=== PATIENT | female | born 1995 | race Caucasian/White ===

== ENCOUNTER 2017-01-30 16:34 | Emergency (ER) | payer BC ==
[~2017-01-30] VITALS: Ht 175.3 cm; Wt 136.3 kg
[2017-01-30 17:31] LABS: HEMATOCRIT 37.9 % (36.0-46.0); MCH 29.3 PG (29.0-34.0); MCHC 34.6 G/DL (30.0-36.0); MCV 84.8 FL (83-99); MEAN PLAT.VOLUME 9.1 uM^3 (9.5-12.4); PLATELET COUNT 270 K/uL (156-360); RBC DIS.WIDTH-CV 12.5 % (11.8-14.6); RBC DIS.WIDTH-SD 38.3 % (39-53); RED BLOOD COUNT 4.47 M/uL (3.80-5.20); WHITE BLOOD COUNT 12.6 K/uL (4.1-10.2)
[2017-01-30 17:39] LABS: CHLORIDE 105 mEq/L (99-109); POTASSIUM 3.9 mEq/L (3.7-5.4); SODIUM 137 mEq/L (136-147)
[2017-01-30 17:41] LABS: GLUCOSE 75 mg/dL (70-99)
[2017-01-30 17:42] LABS: ANION GAP 14 MEQ/L (2-14)
[2017-01-30 17:44] LABS: GFR ESTIMATE (CALCULATED) > 59 mL/min/
[2017-01-30 17:45] LABS: UREA NITROGEN (BUN) 10 mg/dL (9-23)
[2017-01-30 19:04] LABS: ADD MIUA? YES; BILIRUBIN NEGATIVE; BLOOD NEGATIVE; COLOR YELLOW ((YELLOW)); GLUCOSE (STRIP) NEGATIVE; KETONES 80; LEUKOCYTES NEGATIVE; NITRITE NEGATIVE; PROTEIN (STRIP) NEGATIVE; SPECIFIC GRAVITY 1.012 (1.000-1.030); UROBILINOGEN 0.2 MG/DL (0.2-1.0)
[2017-01-30 19:09] LABS: BACTERIA RARE /HPF; EPITHELIAL CELLS 1+ /HPF; MUCUS TRACE /LPF; RED BLOOD CELLS 0-5 /HPF (0-5); WHITE BLOOD CELLS 0-5 /HPF (0-5)
[2017-01-30 19:15] LABS: QUANTITATIVE HCG 127550.1 MIU/ML
[2017-01-30] MEDS ORDERED: ZOFRAN ODT4 MG PO (19:24)
[2017-01-30 19:59] VITALS: BP 137/87
== END 2017-01-30 20:00 | disposition home or self-care (01) ==
LOC: EME 16:34
PROVIDERS: Nurse Practitioner Family
DX: O21.9 Vomiting of pregnancy, unspecified (principal); O26.891 Other specified pregnancy related conditions, first trimester; E86.0 Dehydration; Z3A.10 10 weeks gestation of pregnancy
CPT/HCPCS: 80048; 81003; 84702; 85027; 99281; 99285; J2405; J7030

== ENCOUNTER 2017-05-28 20:37 | Outpatient (CLI) | payer BC, OTHER ==
[~2017-05-28] VITALS: Ht 175.3 cm; Wt 136.2 kg
[~2017-05-28 20:37] MED LIST: ZOFRAN ODT4 MG PO
[2017-05-28 21:13] LABS: ADD MIUA? YES; BILIRUBIN NEGATIVE; BLOOD NEGATIVE; COLOR AMBER ((YELLOW)); GLUCOSE (STRIP) NEGATIVE; KETONES 5; LEUKOCYTES TRACE; NITRITE NEGATIVE; PROTEIN (STRIP) 30; SPECIFIC GRAVITY 1.025 (1.000-1.030)
[2017-05-28 21:29] LABS: HEMATOCRIT 35.3 % (36.0-46.0); MCH 29.6 PG (29.0-34.0); MCHC 34.3 G/DL (30.0-36.0); MCV 86.3 FL (83-99); MEAN PLAT.VOLUME 9.4 uM^3 (9.5-12.4); PLATELET COUNT 290 K/uL (156-360); RBC DIS.WIDTH-CV 12.6 % (11.8-14.6); RBC DIS.WIDTH-SD 39.8 % (39-53); RED BLOOD COUNT 4.09 M/uL (3.80-5.20); WHITE BLOOD COUNT 16.7 K/uL (4.1-10.2)
[2017-05-28 21:33] LABS: BACTERIA 2+ /HPF; CASTS NONE SEEN /LPF; CRYSTALS NONE SEEN; EPITHELIAL CELLS 3+ /HPF; MUCUS 3+ /LPF; RED BLOOD CELLS 0-5 /HPF (0-5); UCUL ADDED? YES
[2017-05-28 21:36] LABS: CHLORIDE 107 mEq/L (99-109); POTASSIUM 3.9 mEq/L (3.7-5.4); SODIUM 137 mEq/L (136-147)
[2017-05-28 21:38] LABS: GLUCOSE 97 mg/dL (70-99)
[2017-05-28 21:39] LABS: ANION GAP 11 MEQ/L (2-14)
[2017-05-28 21:40] LABS: TOTAL BILIRUBIN 0.5 mg/dL (0.0-1.0)
[2017-05-28 21:42] LABS: ALKALINE PHOSPHATASE 96 IU/L (3-129); GFR ESTIMATE (CALCULATED) > 59 mL/min/
[2017-05-28 21:43] LABS: UREA NITROGEN (BUN) 9 mg/dL (9-23)
[2017-05-28 21:45] LABS: LIPASE 76 U/L (1.0-51.0)
[2017-05-28 23:40] LABS: EOSINOPHIL (%) 0.2 % (0-5); IMMATURE GRANULOCYTE (%) 0.4 % (0.0-0.7); IMMATURE GRANULOCYTE COUNT 0.1 K/uL; INSTRUMENT ABS NEUTROPHIL CT 14.1 K/uL; LYMPHOCYTE COUNT 1.4 K/uL (1.0-2.8); MONOCYTE (%) 5.7 % (3-12); MONOCYTE COUNT 0.9 K/uL (0-0.8); NEUTROPHIL (%) 85.3 % (45-76); NEUTROPHIL COUNT 14.1 K/uL (1.8-6.4)
[2017-05-28] MEDS ORDERED: ZANTAC300 MG PO (23:41)
[2017-05-28] MEDS ORDERED: ZOFRAN ODT4 MG PO (23:41)
[2017-05-29 00:40] VITALS: BP 127/60
[2017-05-29 03:54] LABS: UR CREATININE CONCENTRATION 81.5 MG/DL
== END 2017-05-29 04:05 | disposition home or self-care (01) ==
LOC: LDRP-OP 20:37 → EME 20:37 → 2WEST 05-29 00:21
PROVIDERS: Midwife
DX: O26.892 Other specified pregnancy related conditions, second trimester (principal); R10.13 Epigastric pain; O26.612 Liver and biliary tract disorders in pregnancy, second trimester; K80.70 Calculus of gallbladder and bile duct without cholecystitis without obstruction; O99.112 Other diseases of the blood and blood-forming organs and certain disorders involving the immune mechanism complicating pregnancy, second trimester; D72.829 Elevated white blood cell count, unspecified; O99.212 Obesity complicating pregnancy, second trimester; E66.01 Morbid (severe) obesity due to excess calories; Z68.42 Body mass index [BMI] 45.0-49.9, adult; Z3A.26 26 weeks gestation of pregnancy; R80.9 Proteinuria, unspecified
CPT/HCPCS: 59025; 76705; 80053; 81003; 82570; 83605; 83690; 84156; 85025; 85027; 87040; 87086; 99281; 99285; G0378

== ENCOUNTER 2017-06-22 07:01 | Outpatient (CLI) | payer BC, OTHER ==
[~2017-06-22] VITALS: Ht 165.1 cm; Wt 135.5 kg
[~2017-06-22 07:01] MED LIST changes: +ZANTAC300 MG PO
[2017-06-22 07:15] VITALS: BP 126/58
[2017-06-22 08:33] LABS: EOSINOPHIL (%) 0.2 % (0-5); HEMATOCRIT 31.2 % (36.0-46.0); IMMATURE GRANULOCYTE (%) 0.4 % (0.0-0.7); IMMATURE GRANULOCYTE COUNT 0.1 K/uL; INSTRUMENT ABS NEUTROPHIL CT 10.3 K/uL; LYMPHOCYTE COUNT 1.5 K/uL (1.0-2.8); MCH 29.9 PG (29.0-34.0); MCHC 34.9 G/DL (30.0-36.0); MCV 85.5 FL (83-99); MEAN PLAT.VOLUME 9.2 uM^3 (9.5-12.4); MONOCYTE (%) 6.2 % (3-12); MONOCYTE COUNT 0.8 K/uL (0-0.8); NEUTROPHIL (%) 81.4 % (45-76); NEUTROPHIL COUNT 10.3 K/uL (1.8-6.4); PLATELET COUNT 252 K/uL (156-360); RBC DIS.WIDTH-CV 12.4 % (11.8-14.6); RED BLOOD COUNT 3.65 M/uL (3.80-5.20); WHITE BLOOD COUNT 12.7 K/uL (4.1-10.2)
[2017-06-22 09:00] LABS: ALKALINE PHOSPHATASE 99 IU/L (3-129); ANION GAP 9 MEQ/L (2-14); CHLORIDE 107 MEQ/L (99-109); GFR ESTIMATE (CALCULATED) > 59 mL/min/; GLUCOSE 101 mg/dL (70-99); LIPASE 45 U/L (1.0-51.0); POTASSIUM 3.8 MEQ/L (3.7-5.4); SAMPLE HEMOLYSIS CHECK 0; SAMPLE ICTERIC CHECK 0; SAMPLE LIPEMIA CHECK 0; SODIUM 137 MEQ/L (136-147); TOTAL BILIRUBIN 0.5 MG/DL (0.0-1.0); UREA NITROGEN (BUN) 7 mg/dL (9-23)
[2017-06-22 11:47] VITALS: BP 133/65
[2017-06-22 13:40] LABS: ADD MIUA? NO; BILIRUBIN NEGATIVE; BLOOD NEGATIVE; COLOR YELLOW ((YELLOW)); GLUCOSE (STRIP) NEGATIVE; KETONES NEGATIVE; LEUKOCYTES NEGATIVE; NITRITE NEGATIVE; PROTEIN (STRIP) NEGATIVE; SPECIFIC GRAVITY 1.004 (1.000-1.030); UCUL ADDED? NO; UROBILINOGEN 0.2 MG/DL (0.2-1.0)
[2017-06-22 15:03] VITALS: BP 109/68
[2017-06-22] MEDS ORDERED: PRENATAL TABLE1 EAC3 PO (18:39)
== END 2017-06-22 19:30 | disposition home or self-care (01) ==
LOC: LDRP-OP 07:01 → 2WEST 07:02 → LDRP-OP 09-29 05:22
PROVIDERS: Nurse Practitioner
DX: O99.613 Diseases of the digestive system complicating pregnancy, third trimester (principal); Z3A.30 30 weeks gestation of pregnancy; O99.213 Obesity complicating pregnancy, third trimester; E66.01 Morbid (severe) obesity due to excess calories; Z68.42 Body mass index [BMI] 45.0-49.9, adult
CPT/HCPCS: 59025; 76705; 80053; 81003; 83690; 85025; G0378

== ENCOUNTER 2017-09-06 14:12 | Inpatient (IN) | payer BC, OTHER ==
[~2017-09-06] VITALS: Ht 175.3 cm; Wt 127.3 kg
[2017-09-06] VITALS (16 sets, daily range): BP systolic 106–143; BP diastolic 51–80
[~2017-09-06 14:12] MED LIST changes: +PRENATAL TABLE1 EAC3 PO
[2017-09-06] MEDS ORDERED: ZANTAC150 MG PO (14:38)
[2017-09-06] MEDS ORDERED: DHA100 MG PO (14:39)
[2017-09-06] MEDS ORDERED: PROBIOTIC1 EAC1 PO (14:39)
[2017-09-06 18:19] LABS: BASOPHIL (%) 0.2 % (0-1); EOSINOPHIL (%) 0.5 % (0-5); EOSINOPHIL COUNT 0.1 K/uL (0-0.3); HEMATOCRIT 35.1 % (36.0-46.0); HEMOGLOBIN 12.3 G/DL (11.9-15.5); IMMATURE GRANULOCYTE (%) 0.5 % (0.0-0.7); MCH 30.4 PG (29.0-34.0); MCV 86.7 FL (83-99); MONOCYTE (%) 7.8 % (3-12); NEUTROPHIL COUNT 9.3 K/uL (1.8-6.4); PLATELET COUNT 249 K/uL (156-360); RBC DIS.WIDTH-CV 13.3 % (11.8-14.6); RBC DIS.WIDTH-SD 41.4 % (39-53); RED BLOOD COUNT 4.05 M/uL (3.80-5.20); WHITE BLOOD COUNT 12.4 K/uL (4.1-10.2)
[2017-09-07] VITALS (17 sets, daily range): BP systolic 100–137; BP diastolic 53–70
[2017-09-07] MEDS ORDERED: IBUPROFEN800 MG PO (11:51)
[2017-09-08 07:50] VITALS: BP 138/74
[2017-09-08 14:35] VITALS: BP 132/79
[2017-09-09 07:36] VITALS: BP 140/98
[2017-09-09 09:09] VITALS: BP 127/68
== END 2017-09-09 11:45 | disposition home or self-care (01) | DRG 775 ==
LOC: LDRP-OP 14:12 → 2WEST 14:13 → LDRP-OP 09-29 19:48
PROVIDERS: Obstetrics & Gynecology Obstetrics
PROC: 00HU33Z Insertion of Infusion Device into Spinal Canal, Percutaneous Approach (ICD-10-PCS; principal; 2017-09-06)
PROC: 3E0R3BZ Introduction of Anesthetic Agent into Spinal Canal, Percutaneous Approach (ICD-10-PCS; principal; 2017-09-06)
PROC: 10907ZC Drainage of Amniotic Fluid, Therapeutic from Products of Conception, Via Natural or Artificial Opening (ICD-10-PCS; principal; 2017-09-06)
PROC: 10E0XZZ Delivery of Products of Conception, External Approach (ICD-10-PCS; 2017-09-07)
DX: O99.214 Obesity complicating childbirth (principal); E66.01 Morbid (severe) obesity due to excess calories; Z37.0 Single live birth; Z68.42 Body mass index [BMI] 45.0-49.9, adult; Z3A.41 41 weeks gestation of pregnancy; O48.0 Post-term pregnancy
CPT/HCPCS: 85025; C1755; G0378; J2405; J2540; J3010; J7120

== ENCOUNTER 2017-10-15 14:03 | Inpatient (IN) | payer BC, OTHER ==
[~2017-10-15] VITALS: Ht 172.7 cm; Wt 129.7 kg
[~2017-10-15 14:03] MED LIST changes: +DHA100 MG PO; +IBUPROFEN800 MG PO; +PROBIOTIC1 EAC1 PO; +ZANTAC150 MG PO
[2017-10-15 14:39] LABS: APPEARANCE CLOUDY ((CLEAR)); BILIRUBIN NEGATIVE; BLOOD LARGE; COLOR AMBER ((YELLOW)); GLUCOSE (STRIP) NEGATIVE; KETONES NEGATIVE; LEUKOCYTES LARGE; NITRITE NEGATIVE; PROTEIN (STRIP) 30; SPECIFIC GRAVITY 1.011 (1.000-1.030)
[2017-10-15 14:55] LABS: HEMATOCRIT 43.1 % (36.0-46.0); HEMOGLOBIN 14.6 G/DL (11.9-15.5); MCH 29.4 PG (29.0-34.0); MCHC 33.9 G/DL (30.0-36.0); MCV 86.9 FL (83-99); PLATELET COUNT 274 K/uL (156-360); RBC DIS.WIDTH-CV 12.6 % (11.8-14.6); RBC DIS.WIDTH-SD 39.8 % (39-53); RED BLOOD COUNT 4.96 M/uL (3.80-5.20); WHITE BLOOD COUNT 16.7 K/uL (4.1-10.2)
[2017-10-15 15:02] LABS: ALBUMIN 4.4 g/dL (3.2-4.8); CHLORIDE 106 mEq/L (99-109); SODIUM 143 mEq/L (136-147)
[2017-10-15 15:04] LABS: GLUCOSE 123 mg/dL (70-99)
[2017-10-15 15:05] LABS: TOTAL PROTEIN 7.3 g/dL (6.4-8.3)
[2017-10-15 15:06] LABS: TOTAL BILIRUBIN 2.7 mg/dL (0.0-1.0)
[2017-10-15 15:08] LABS: ALKALINE PHOSPHATASE 322 IU/L (3-129); CREATININE 0.9 mg/dL (0.6-1.3); GFR ESTIMATE (CALCULATED) > 59 mL/min/
[2017-10-15 15:09] LABS: UREA NITROGEN (BUN) 13 mg/dL (9-23)
[2017-10-15 15:09] LABS: EPITHELIAL CELLS 4+ /HPF; MUCUS NONE SEEN /LPF
[2017-10-15 15:10] LABS: AST (GOT) 365 IU/L (2-34)
[2017-10-15 15:10] LABS: AMORPHOUS URATES CRYSTALS 2+; BACTERIA 1+ /HPF; UCUL ADDED? YES
[2017-10-15 15:15] LABS: ALT (GPT) 585 IU/L (3-49)
[2017-10-15 15:18] LABS: QUANTITATIVE HCG < 4.0 MIU/ML
[2017-10-15 15:39] LABS: DIRECT BILIRUBIN 2.1 mg/dL (0.0-0.3)
[2017-10-15 16:20] LABS: LIPASE 10180 U/L (1.0-51.0)
[2017-10-15 18:57] LABS: AMYLASE 2879 IU/L (1-118)
[2017-10-15 22:27] VITALS: BP 109/57
[2017-10-16 03:37] VITALS: BP 94/54
[2017-10-16 07:06] LABS: BASOPHIL (%) 0.4 % (0-1); EOSINOPHIL (%) 1.1 % (0-5); EOSINOPHIL COUNT 0.1 K/uL (0-0.3); HEMATOCRIT 34.8 % (36.0-46.0); IMMATURE GRANULOCYTE (%) 0.2 % (0.0-0.7); LYMPHOCYTE (%) 25.4 % (15-42); LYMPHOCYTE COUNT 2.4 K/uL (1.0-2.8); MCH 28.5 PG (29.0-34.0); MCHC 32.5 G/DL (30.0-36.0); MCV 87.9 FL (83-99); MONOCYTE (%) 6.4 % (3-12); MONOCYTE COUNT 0.6 K/uL (0-0.8); NEUTROPHIL (%) 66.5 % (45-76); NEUTROPHIL COUNT 6.3 K/uL (1.8-6.4); PLATELET COUNT 238 K/uL (156-360); RBC DIS.WIDTH-CV 12.9 % (11.8-14.6); RBC DIS.WIDTH-SD 41.4 % (39-53); WHITE BLOOD COUNT 9.5 K/uL (4.1-10.2)
[2017-10-16 07:15] LABS: HEMOGLOBIN 11.3 G/DL (11.9-15.5); RED BLOOD COUNT 3.96 M/uL (3.80-5.20)
[2017-10-16 07:16] VITALS: BP 110/53
[2017-10-16 07:24] LABS: ALBUMIN 3.4 G/DL (3.2-4.8); ALKALINE PHOSPHATASE 207 IU/L (3-129); ALT (GPT) 296 IU/L (3-49); AST (GOT) 117 IU/L (2-34); CHLORIDE 110 MEQ/L (99-109); CREATININE 0.8 MG/DL (0.6-1.3); GFR ESTIMATE (CALCULATED) > 59 mL/min/; GLUCOSE 79 mg/dL (70-99); LIPASE 1947 U/L (1.0-51.0); POTASSIUM 3.7 MEQ/L (3.7-5.4); SODIUM 144 MEQ/L (136-147); TOTAL BILIRUBIN 0.9 MG/DL (0.0-1.0); TOTAL PROTEIN 5.3 G/DL (6.4-8.3); UREA NITROGEN (BUN) 14 mg/dL (9-23)
[2017-10-16 15:45] VITALS: BP 119/65
[2017-10-16 23:01] VITALS: BP 108/55
[2017-10-17 06:18] LABS: HEMATOCRIT 35.6 % (36.0-46.0); HEMOGLOBIN 11.6 G/DL (11.9-15.5); MCH 28.5 PG (29.0-34.0); MCHC 32.6 G/DL (30.0-36.0); MCV 87.5 FL (83-99); PLATELET COUNT 214 K/uL (156-360); RBC DIS.WIDTH-CV 12.5 % (11.8-14.6); RBC DIS.WIDTH-SD 40.2 % (39-53); RED BLOOD COUNT 4.07 M/uL (3.80-5.20); WHITE BLOOD COUNT 9.5 K/uL (4.1-10.2)
[2017-10-17 06:37] LABS: ALBUMIN 3.4 G/DL (3.2-4.8); ALKALINE PHOSPHATASE 196 IU/L (3-129); ALT (GPT) 207 IU/L (3-49); CHLORIDE 105 MEQ/L (99-109); CREATININE 0.9 MG/DL (0.6-1.3); GFR ESTIMATE (CALCULATED) > 59 mL/min/; GLUCOSE 57 mg/dL (70-99); LIPASE 314 U/L (1.0-51.0); POTASSIUM 3.9 MEQ/L (3.7-5.4); SODIUM 138 MEQ/L (136-147); TOTAL BILIRUBIN 0.8 MG/DL (0.0-1.0); TOTAL PROTEIN 5.5 G/DL (6.4-8.3); UREA NITROGEN (BUN) 10 mg/dL (9-23)
[2017-10-17 06:39] LABS: AST (GOT) 46 IU/L (2-34)
[2017-10-17 06:40] VITALS: BP 134/61
[2017-10-17 14:55] VITALS: BP 126/70
[2017-10-17 23:44] VITALS: BP 127/64
[2017-10-18 07:21] LABS: ALBUMIN 3.4 G/DL (3.2-4.8); ALKALINE PHOSPHATASE 172 IU/L (3-129); ALT (GPT) 139 IU/L (3-49); CHLORIDE 105 MEQ/L (99-109); CREATININE 0.8 MG/DL (0.6-1.3); GFR ESTIMATE (CALCULATED) > 59 mL/min/; GLUCOSE 69 mg/dL (70-99); LIPASE 110 U/L (1.0-51.0); POTASSIUM 3.8 MEQ/L (3.7-5.4); SODIUM 142 MEQ/L (136-147); TOTAL BILIRUBIN 0.8 MG/DL (0.0-1.0); TOTAL PROTEIN 5.5 G/DL (6.4-8.3); UREA NITROGEN (BUN) 7 mg/dL (9-23)
[2017-10-18 07:28] LABS: AST (GOT) 25 IU/L (2-34)
[2017-10-18 07:30] VITALS: BP 128/62
[2017-10-18 11:55] VITALS: BP 131/86
[2017-10-18 13:18] VITALS: BP 140/79
[2017-10-18 17:39] VITALS: BP 132/49
[2017-10-18 20:55] VITALS: BP 121/58
[2017-10-18 23:52] VITALS: BP 122/65
[2017-10-19 03:25] VITALS: BP 112/58
[2017-10-19 07:12] LABS: BASOPHIL (%) 0.1 % (0-1); EOSINOPHIL (%) 0 % (0-5); HEMATOCRIT 35.3 % (36.0-46.0); HEMOGLOBIN 11.8 G/DL (11.9-15.5); IMMATURE GRANULOCYTE (%) 0.4 % (0.0-0.7); LYMPHOCYTE COUNT 0.9 K/uL (1.0-2.8); MCH 28.6 PG (29.0-34.0); MCHC 33.4 G/DL (30.0-36.0); MCV 85.5 FL (83-99); MONOCYTE (%) 7.1 % (3-12); MONOCYTE COUNT 0.7 K/uL (0-0.8); NEUTROPHIL (%) 83.4 % (45-76); NEUTROPHIL COUNT 8.2 K/uL (1.8-6.4); PLATELET COUNT 263 K/uL (156-360); RBC DIS.WIDTH-CV 12.5 % (11.8-14.6); RED BLOOD COUNT 4.13 M/uL (3.80-5.20); WHITE BLOOD COUNT 9.9 K/uL (4.1-10.2)
[2017-10-19 08:24] VITALS: BP 133/63
[2017-10-19 08:41] LABS: ALBUMIN 3.3 G/DL (3.2-4.8); ALKALINE PHOSPHATASE 152 IU/L (3-129); ALT (GPT) 122 IU/L (3-49); C-REACTIVE PROTEIN 231.4 MG/L (0-10); CHLORIDE 106 MEQ/L (99-109); CREATININE 0.7 MG/DL (0.6-1.3); GFR ESTIMATE (CALCULATED) > 59 mL/min/; POTASSIUM 4.5 MEQ/L (3.7-5.4); SODIUM 142 MEQ/L (136-147); TOTAL PROTEIN 5.7 G/DL (6.4-8.3); UREA NITROGEN (BUN) 7 mg/dL (9-23)
[2017-10-19 08:48] LABS: AST (GOT) 51 IU/L (2-34); GLUCOSE 137 mg/dL (70-99); TOTAL BILIRUBIN 0.5 MG/DL (0.0-1.0)
[2017-10-19 08:58] LABS: AMYLASE 48 IU/L (1-118); LIPASE 57 U/L (1.0-51.0)
[2017-10-19 11:13] VITALS: BP 127/62
[2017-10-19 16:00] VITALS: BP 138/73
[2017-10-19 19:58] VITALS: BP 126/67
[2017-10-19 23:37] VITALS: BP 134/92
[2017-10-20 03:13] VITALS: BP 129/78
[2017-10-20 06:55] LABS: BASOPHIL (%) 0.4 % (0-1); EOSINOPHIL (%) 1.9 % (0-5); EOSINOPHIL COUNT 0.1 K/uL (0-0.3); HEMATOCRIT 32.7 % (36.0-46.0); HEMOGLOBIN 10.8 G/DL (11.9-15.5); IMMATURE GRANULOCYTE (%) 0.3 % (0.0-0.7); LYMPHOCYTE (%) 32.3 % (15-42); LYMPHOCYTE COUNT 2.4 K/uL (1.0-2.8); MCH 29.2 PG (29.0-34.0); MCV 88.4 FL (83-99); MONOCYTE (%) 8.1 % (3-12); MONOCYTE COUNT 0.6 K/uL (0-0.8); NEUTROPHIL COUNT 4.3 K/uL (1.8-6.4); PLATELET COUNT 235 K/uL (156-360); RBC DIS.WIDTH-CV 12.8 % (11.8-14.6); RBC DIS.WIDTH-SD 41.4 % (39-53); WHITE BLOOD COUNT 7.5 K/uL (4.1-10.2)
[2017-10-20 07:10] VITALS: BP 133/72
[2017-10-20 07:17] LABS: ALBUMIN 3.2 G/DL (3.2-4.8); ALKALINE PHOSPHATASE 130 IU/L (3-129); ALT (GPT) 89 IU/L (3-49); AST (GOT) 32 IU/L (2-34); CHLORIDE 110 MEQ/L (99-109); CREATININE 0.8 MG/DL (0.6-1.3); DIRECT BILIRUBIN 0.1 mg/dL (0.0-0.3); GFR ESTIMATE (CALCULATED) > 59 mL/min/; POTASSIUM 4.2 MEQ/L (3.7-5.4); SODIUM 144 MEQ/L (136-147); TOTAL BILIRUBIN 0.4 MG/DL (0.0-1.0); TOTAL PROTEIN 5.2 G/DL (6.4-8.3); UREA NITROGEN (BUN) 9 mg/dL (9-23)
[2017-10-20 07:28] LABS: GLUCOSE 80 mg/dL (70-99)
[2017-10-20] MEDS ORDERED: ENDOCET 5-3251 EACH PO (14:46)
[2017-10-20 16:08] VITALS: BP 131/64
[2017-10-20 23:35] VITALS: BP 125/60
[2017-10-21 06:00] LABS: BASOPHIL (%) 0.4 % (0-1); EOSINOPHIL (%) 2.8 % (0-5); EOSINOPHIL COUNT 0.3 K/uL (0-0.3); HEMATOCRIT 35.3 % (36.0-46.0); HEMOGLOBIN 11.6 G/DL (11.9-15.5); IMMATURE GRANULOCYTE (%) 0.3 % (0.0-0.7); LYMPHOCYTE (%) 22.1 % (15-42); LYMPHOCYTE COUNT 2.1 K/uL (1.0-2.8); MCH 28.6 PG (29.0-34.0); MCHC 32.9 G/DL (30.0-36.0); MCV 87.2 FL (83-99); MONOCYTE (%) 9.4 % (3-12); MONOCYTE COUNT 0.9 K/uL (0-0.8); NEUTROPHIL COUNT 6.1 K/uL (1.8-6.4); PLATELET COUNT 279 K/uL (156-360); RBC DIS.WIDTH-CV 12.6 % (11.8-14.6); RBC DIS.WIDTH-SD 40.4 % (39-53); RED BLOOD COUNT 4.05 M/uL (3.80-5.20); WHITE BLOOD COUNT 9.5 K/uL (4.1-10.2)
[2017-10-21 06:27] LABS: ALBUMIN 3.5 G/DL (3.2-4.8); ALT (GPT) 73 IU/L (3-49); AST (GOT) 20 IU/L (2-34); CHLORIDE 107 MEQ/L (99-109); CREATININE 0.8 MG/DL (0.6-1.3); DIRECT BILIRUBIN 0.2 mg/dL (0.0-0.3); GFR ESTIMATE (CALCULATED) > 59 mL/min/; GLUCOSE 85 mg/dL (70-99); LIPASE 171 U/L (1.0-51.0); SODIUM 142 MEQ/L (136-147); UREA NITROGEN (BUN) 9 mg/dL (9-23)
[2017-10-21 06:28] LABS: ALKALINE PHOSPHATASE 165 IU/L (3-129); TOTAL BILIRUBIN 0.5 MG/DL (0.0-1.0)
[2017-10-21 07:18] VITALS: BP 144/81
[2017-10-21] MEDS ORDERED: COLACE100 MG PO (08:33)
[2017-10-21] MEDS ORDERED: ULTRAM50 MG PO (08:33)
[2017-10-21] MEDS ORDERED: ZOFRAN ODT4 MG PO (08:34)
== END 2017-10-21 12:07 | disposition home or self-care (01) | DRG 417 ==
LOC: EME 14:03 → EDOF 20:49 → 5EAST 20:49 → ENRESERV 21:21 → 5EAST 22:20 → ENPENDDIS 10-21 → 5EAST 10-21 12:07
PROVIDERS: Family Medicine; Hospitalist; Internal Medicine; Physician Assistant
PROC: 0FT44ZZ Resection of Gallbladder, Percutaneous Endoscopic Approach (ICD-10-PCS; principal; 2017-10-18)
DX: K80.10 Calculus of gallbladder with chronic cholecystitis without obstruction (principal); K85.10 Biliary acute pancreatitis without necrosis or infection; E66.01 Morbid (severe) obesity due to excess calories; Z68.41 Body mass index [BMI] 40.0-44.9, adult; K21.9 Gastro-esophageal reflux disease without esophagitis; K59.00 Constipation, unspecified; Z80.0 Family history of malignant neoplasm of digestive organs
CPT/HCPCS: 74181; 76705; 80048; 80053; 80076; 81003; 82150; 82248; 82948; 83690; 84702; 85025; 85027; 86140; 87086; 88304; 99281; 99285; J0131; J0696; J1100; J1170; J1650; J1885; J2250; J2270; J2405; J2710; J3010; J3475; J7030; J7120; J7643; S0020; S0028